=== PATIENT | male | born 1950 | race Caucasian/White ===

== ENCOUNTER 2021-12-01 09:43 | Emergency (ER) | payer OTHER ==
[~2021-12-01] VITALS: Ht 198.1 cm; Wt 127.5 kg
[2021-12-01] MEDS ORDERED: NEXIUM40 M1 PO (10:12)
[2021-12-01] MEDS ORDERED: TERAZOSIN HCL5 MG (10:12)
[2021-12-01] MEDS ORDERED: ZIAC 10/6.25 MG1 TAB (10:12)
[2021-12-01] MEDS ORDERED: ATORVASTATIN CA10 MG (10:13)
[2021-12-01] MEDS ORDERED: ZESTRIL5 MG (10:13)
== END 2021-12-01 16:13 | disposition home or self-care (01) ==
LOC: ER 09:43
DX: I80.9 Phlebitis and thrombophlebitis of unspecified site (principal); I87.2 Venous insufficiency (chronic) (peripheral); I10 Essential (primary) hypertension